=== PATIENT | female | born 1985 | race Caucasian/White ===

== ENCOUNTER 2016-08-03 21:14 | Emergency (ER) | payer BC ==
[2015-10-31 14:16] VITALS: BMI 26.5
[~2016-08-03 21:14] MED LIST: ADIPEX-P37.5 M1 PO; FLUTICASONE PRO16 GM NS; IBUPROFEN600 MG OR; Lortab Liquid PO; MEDROL DOSE PACK4 MG PO; PERCOCET 5/3251 TA1 OR; PRENATAL COMPLE1 TAB PO; SYNTHROID75 MCG PO; TOPAMAX25 MG PO
== END 2016-08-04 00:06 | disposition home or self-care (01) ==
LOC: D.ER 21:14
DX: S16.1XXA Strain of muscle, fascia and tendon at neck level, initial encounter (principal); V43.52XA Car driver injured in collision with other type car in traffic accident, initial encounter; Y93.89 Activity, other specified; Y92.481 Parking lot as the place of occurrence of the external cause; S80.01XA Contusion of right knee, initial encounter; D68.9 Coagulation defect, unspecified

== ENCOUNTER 2016-10-28 05:53 | Day surgery (SDC) | payer BC ==
[2016-10-27 11:14] LABS: HEMATOCRIT 39.6 % (36.0-48.0); HEMOGLOBIN 13.5 g/dL (12-16); MCH 30.2 pg (26.0-34.0); MCHC 34.1 g/dL (31.0-37.0); MCV 88.6 fL (80.0-100.0); MEAN PLATELET VOLUME 10.7 fL (7.4-10.4); RBC 4.47 10x6/uL (4.00-5.40); RDW 12.6 % (11.5-14.5); WBC 6.2 10x3/uL (4.8-10.8)
[~2016-10-28] VITALS: Ht 154.9 cm; Wt 72.6 kg
[2016-10-28 07:11] VITALS: BP 97/54; Ht 154.9 cm; Wt 72.6 kg
[2016-10-28] MEDS ORDERED: HYDROCODONE-APA1 TAB PO (09:21)
--- NOTE | 2016-10-28 19:16 | NUR ---
1050 IV DC WITH CATHER TIP INTACT
--- NOTE | 2016-11-01 09:22 | OP ---
PATIENT NAME: EDUARDO FORDE MEDICAL RECORD: [id number] :87 LOCATION:D.OPS ADMISSION DATE: SURGEON: DEMARCUS ALMANZA MD DATE OF OPERATION: 10/28/2016 Orthopedic Surgery Operative Note PREOPERATIVE DIAGNOSES: Impingement syndrome, acromioclavicular arthritis and superior labrum anterior and posterior lesion. POSTOPERATIVE DIAGNOSES: Impingement syndrome, acromioclavicular arthritis and superior labrum anterior and posterior lesion. PROCEDURES: 1. Arthroscopic subacromial decompression. 2. Arthroscopic distal clavicle excision. SURGEON: Demarcus Almanza MD ANESTHESIA: General. INTRAOPERATIVE COMPLICATIONS: None. SUMMARY OF PATHOLOGIC FINDINGS: The patient has a small labral tear posteriorly causing internal impingement. The patient had a type 3 acromion with acromioclavicular arthritis. OPERATIVE SUMMARY IN DETAIL: After obtaining the appropriate preoperative orthopedic surgery consent as well as anesthetic consultation, evaluation and clearance, the patient was brought to the operating room and placed on the operating table in supine position. After general laryngeal mask was administered, the patient was placed in a right lateral decubitus position. All pressure points were well padded. This is of the left shoulder. All pressure points were well padded to include down leg peroneal pad as well as axillary roll. The patient was held firmly to the operating table using the vacuum pack suction system. Left upper extremity and shoulder were then prepped and draped in a routine sterile fashion. The arm was held in the Arthrex traction boom at 30 degrees of forward flexion, 30 degrees of abduction with 10 pounds of traction laterally. Arthroscopy was established in the glenohumeral joint from a posterior portal. Anterior portal was established in the anterior safe interval. Diagnostic arthroscopy showed the patient had a small labral tear as described above. A resector was then utilized to debride this small posterior pannus with labral tearing. Having completed this, attention was turned to the subacromial space. While on subacromial space, a 3.5 full radius resector in conjunction with an Arthrex tissue ablation system was utilized to denude the undersurface of the acromion of all soft tissue elements. A 5-0 barrel bur was then used to perform acromioplasty at the level of acromioclavicular joint. Please note the AC ligament was released as well. At this point, the Arthrex bur was utilized to perform a distal clavicle excision -- 1 cm through a separate arthroscopic incision. The residual bursa was taken down anteriorly, posteriorly, superiorly as well as laterally to complete the subacromial bursectomy. Having completed this, arthroscopy portals were closed in routine interrupted fashion using 4-0 Prolene. Sterile dressings were applied. The patient was awakened and taken to OPERATIVE REPORT [id number] EDUARDO FORDE recovery room in stable condition. All final needle and sponge counts were correct. TRANSINT:[id number] Voice Confirmation ID: [id number] DOCUMENT ID: [id number] CAMI IRIZARRY, DEMARCUS MUHAMMAD at 0922 CC: [id number] DICTATION DATE: 10/28/16922 REHABILITATION WORKER: 10/28/16 1439 [facility] 10/28/[address] [id number]
== END 2016-10-28 11:10 | disposition home or self-care (01) ==
LOC: D.OPS 05:53 → D.PAN 08:00 → D.OPS 08:00
PROVIDERS: Anesthesiology
DX: M75.42 Impingement syndrome of left shoulder (principal); M13.812 Other specified arthritis, left shoulder; S43.432A Superior glenoid labrum lesion of left shoulder, initial encounter

== ENCOUNTER 2017-05-18 19:05 | Emergency (ER) | payer BC ==
[2016-10-28 07:11] VITALS: BMI 30.3
[~2017-05-18 19:05] MED LIST changes: +HYDROCODONE-APA1 TAB PO
[2017-05-18 20:02] LABS: APPEARANCE CLEAR (CLEAR); BILIRUBIN NEGATIVE (NEGATIVE); COLOR YELLOW (YELLOW); GLUCOSE NEGATIVE (NEGATIVE); KETONE NEGATIVE (NEGATIVE); NITRITE NEGATIVE (NEGATIVE); PROTEIN NEGATIVE (NEGATIVE); SPECIFIC GRAVITY 1.015 (1.005-1.020); UROBILINOGEN NORMAL (NORMAL)
[2017-05-18 20:33] LABS: ALBUMIN 4.1 g/dL (3.4-5.0); ALKALINE PHOSPHATASE 69 U/L (46-116); ALT (SGPT) 18 U/L (10-68); AMYLASE - SERUM 34 U/L (25-115); BILIRUBIN - TOTAL 1.89 mg/dL (0.2-1.3); CALC OSMOLALITY 271 mosm/kg (275-300); CALCIUM 8.9 mg/dL (8.5-10.1); CARBON DIOXIDE 25.9 mmol/L (21.0-32.0); CHLORIDE - SERUM 99 mmol/L (98-107); CREATININE - SERUM 0.8 mg/dL (0.6-1.3); GLUCOSE 104 mg/dL (74-106); LIPASE 77 U/L (73-393); POTASSIUM - SERUM 3.5 mmol/L (3.5-5.1); PROTEIN - SERUM 7.9 g/dL (6.4-8.2); SODIUM 136 mmol/L (136-145); UREA NITROGEN 13 mg/dL (7-18); eGFR NON AFRICAN AMERICAN 89 mL/min (90-120)
== END 2017-05-18 23:22 | disposition home or self-care (01) ==
LOC: D.ER 19:05
PROVIDERS: Emergency Medicine; Physician Assistant
DX: R10.31 Right lower quadrant pain (principal); R11.2 Nausea with vomiting, unspecified